=== PATIENT | female | born 1970 | race Two or more races ===

== ENCOUNTER 2024-06-07 18:43 | Emergency (ER) | payer MEDICAID, OTHER ==
[~2024-06-07] VITALS: Ht 154.9 cm; Wt 67.3 kg
--- NOTE | 2024-06-07 23:15 | ED.PDOC ---
Eye-HPI HPI Comments This is a 54-year-old female patient presents to the ED with left eye swelling. Patient states happened around 5 hours ago. Related symptoms of increased watering and itchiness. She denies any foreign body feeling. Denies any known injury. Denies any vision changes. Chief Complaint: Eye Problem Time Seen by MD: 19:23 Reviewed Notes: Nurses Notes, Medications, Allergies Mode of Arrival: Ambulatory Past Medical History PAST MEDICAL HISTORY: Denies Surgical History: Denies all surgeries CHECK TOTALER History: No Pertinent CHECK TOTALER History Constitutional: denies: chills, diaphoresis, fatigue, fever, malaise, sweats, weakness, others EENTM: reports: eye pain (Left), eye redness (Left) Respiratory: denies: cough, hemoptysis, orthopnea, SOB at rest, shortness of breath, SOB with excertion, stridor, wheezing, others Cardiovascular: denies: chest pain, dizzy spells, diaphoresis, Dyspnea on exertion, edema, irregular heart beat, left arm pain, lightheadedness, palpitations, PND, syncope, others Gastrointestinal: denies: abdomen distended, abdominal pain, blood streaked bowels, constipated, diarrhea, dysphagia, difficulty swallowing, hematemesis, melena, nausea, poor appetite, poor fluid intake, rectal bleeding, rectal pain, vomiting, others Genitourinary: denies: abnormal vagina bleeding, burning, dyspareunia, dysuria, flank pain, frequency, hematuria, incontinence, pain, , vagina disch arge, urgency, others Neurological: denies: dizziness, fainting, headache, left sided numbness, left sided weakness, numbness, paresthesia, pre-existing deficit, right sided numbness, right sided weakness, seizure, speech problems, tingling, tremors, weakness, others Musculoskeletal: denies: back pain, gout, joint pain, joint swelling, muscle pain, muscle stiffness, neck pain, others Integumetry: denies: bruises, change in color, change in hair/nails, dryness, laceration, lesions, lumps, rash, wounds, others Allergic/Immunocompromised: denies: Difficulty Healing, Frequent Infections, Hives, Itching, others Hematologic/Lymphatic: denies: anemia, blood clots, easy bleeding, easy bruising, swollen glands, others Endocrine: denies: excessive hunger, excessive sweating, excessive thirst, excessive urination, flushing, intolerance to cold, intolerance to heat, unexplained weight gain, unexplained weight loss, others Psychiatric: denies: anxiety, bipolar disorder, depression, hopeless, panic disorder, schizophrenia, sleepless, suicidal, others Physical Exam General Appearance: No Apparent Distress, Normal HEENT: Pharynx Normal, TMs Normal, Other (Left eye hyperemia conjunctiva noted clear drainage) Neck: Full Range of Motion, Non-Tender, Normal, Normal Inspection Respiratory: Lungs Clear, No Respiratory Distress, Normal Breath Sounds Cardiovascular: No Murmur, Normal Peripheral Pulses, Regular Rate/Rhythm Breast Exam: Deferred Gastrointestinal: Non Tender, Soft Genitalia: Deferred Pelvic: Deferred Rectal: Deferred Extremities: Normal capillary refill, Normal inspection, Normal range of motion, Non-tender, No pedal edema Musculoskeletal : Apperance: Normal Neurologic: 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 Was a procedure done?: No EENT DIFF Eye: Corneal Ulceration X-Ray, Labs, Meds, VS Vital Signs Date Time Temp Pulse Resp B/P (MAP) Pulse Ox O2 Delivery O2 Flow Rate FiO2 06/07/24 19:07 99.2 74 18 152/86 (108) 95 X-Ray, Labs, Meds, VS Comment Likely bacterial possible allergic. Decadron 10 mg IM for the pain and swelling. Script moxifloxacin eye drops 1 drop 3 times a day x7 days. Advised patient to follow up with Ophthalmology if no improvement in 2 days. ED return precautions given. Patient agrees with discharge plan of care. Time of 1ST Reevaluation: 23:15 Reevaluation 1ST: Improved Patient Education/Counseling: Diagnosis, Treatment, Prognosis, Need For Follow Up Family Education/Counseling: No Family Present Departure 1 Departure Time of Disposition: 23:15 Impression: Primary Impression: Conjunctivitis, left eye Qualified Codes: H10.32 - Unspecified acute conjunctivitis, left eye Disposition: HOME / SELF CARE / HOMELESS Condition: Stable e-Prescriptions Moxifloxacin Hydrochloride (Moxifloxacin HCl) 0.5 % Cat[place] 1 DROP OP TID for 7 Days, #3 ML Prov: FABIANA SHAFFER 06/07/24 Critical Care Note Critical Care Time?: No Stability Stability form required: No FABIANA SHAFFER Jun 07, 2024 23:15
[2024-06-07] MEDS ORDERED: MOXI0.5S3 OP (23:17)
[2024-06-07 23:25] VITALS: BP 135/70; PULSE 66; RESP 16; TEMP 98.2; O2SAT 96
[2024-06-07] MEDS: DexAMETHasone SOD PHOS 10MG/1ML VIAL INJ IM ONE (23:25)
== END 2024-06-07 23:41 | disposition home or self-care (01) ==
LOC: ER 18:43
DX: H10.32 Unspecified acute conjunctivitis, left eye (principal)
CPT/HCPCS: 96372; 99283; J1100